=== PATIENT | male | born 1990 | race Two or more races ===

== ENCOUNTER 2021-10-21 05:11 | Emergency (ER) | payer SELFPAY ==
[~2021-10-21] VITALS: Ht 165.1 cm; Wt 136.2 kg
[2021-10-21] MEDS ORDERED: SODIUM CHLORIDE 0.9% 1,000 ML IV ONE ×2 (05:30→08:15)
[2021-10-21] MEDS ORDERED: ACETAMINOPHEN 500 MG TAB PO ONE (05:30)
[2021-10-21 06:22] LABS: Albumin 2.9 g/dL (3.4-5.0); BUN/Creatinine Ratio 15.2; Calcium 8.4 mg/dL (8.5-10.1); Potassium 3.6 mmol/L (3.5-5.1)
[2021-10-21 06:25] LABS: Bilirubin, Total 1.2 mg/dL (0.2-1.0); Total Protein 6.9 g/dL (6.4-8.2)
[2021-10-21 06:29] LABS: INR 1.2 (0.9-1.15); Partial Thromboplastin Time 30.2 sec (23.6-33.0)
[2021-10-21 06:35] LABS: Basophils # (auto) 0 10 ^3/uL (0-0.2); Eosinophils # (auto) 0 10 ^3/uL (0-0.8); Monocytes # (auto) 0.5 10 ^3/uL (0-1.3); Monocytes % (auto) 6.9 % (0.0-12.0); Nucleated Red Blood Cells % 0.1 %; Red Cell Distribution Width 13.5 % (11.8-14.3); White Blood Cell 7.7 10^3/uL (4.4-10.8)
[2021-10-21 06:39] LABS: Basophils % (auto) 0.2 % (0.0-2.0); Hemoglobin 15.2 g/dL (13.5-17.5); Lymphocytes # (auto) 0.9 10 ^3/uL (0.4-5.4); Lymphocytes % (auto) 11.8 % (10.0-50.0); Mean Corpuscular Hemoglobin 32.8 pg (28.0-32.0); Mean Corpuscular Hgb Conc. 35.4 g/dL (32.0-36.0); Mean Corpuscular Volume 92.8 fL (80.0-100.0); Neutrophils # (auto) 6.3 10 ^3/uL (1.6-8.6); Neutrophils % (auto) 81.1 % (37.0-80.0); Red Blood Cells 4.64 10^6/uL (4.5-5.90)
[2021-10-21] MEDS ORDERED: SODIUM CHLORIDE 0.9% 500 ML IV ONE (08:15)
[2021-10-21] MEDS ORDERED: TAMSULOSIN HYDROCHLORIDE 0.4 MG CAP PO ONE (08:15)
[2021-10-21] MEDS ORDERED: cefTRIAXone 1GM/50ML D5W 50 ML IV ONE (08:15)
[2021-10-21 08:34] LABS: Urine Bacteria NONE SEEN /hpf (None Seen); Urine Blood Negative /uL (Negative); Urine Mucus FEW (None Seen); Urine Specific Gravity 1.025 (1.001-1.035); Urine WBC 3 /hpf (0 - 3)
[2021-10-21 15:02] VITALS: BP 95/53
[2021-10-21] MEDS ORDERED: TAMS0.4C36 PO (15:48)
[2021-10-21] MEDS ORDERED: CIPR-173 PO (15:48)
== END 2021-10-21 16:14 | disposition home or self-care (01) ==
LOC: ER 05:11
DX: N41.9 Inflammatory disease of prostate, unspecified (principal); R30.0 Dysuria; R74.01 Elevation of levels of liver transaminase levels; R07.89 Other chest pain; E66.01 Morbid (severe) obesity due to excess calories; Z20.822 Contact with and (suspected) exposure to COVID-19; Z68.43 Body mass index [BMI] 50.0-59.9, adult
CPT/HCPCS: 36415; 71045; 80053; 81001; 83605; 83735; 84443; 85025; 85610; 85730; 87040; 87070; 87077; 87186; 87426; 87804; 87880; 93005; 96361; 96365; 99285; J0696; J7030; J7040